=== PATIENT | male | born 1940 | race African-American/Black ===

== ENCOUNTER 2020-09-25 04:48 | Inpatient (IN) | payer MEDICARE ==
[2020-09-25 06:11] LABS: #Eosinphils 0.1 thou/uL (0.0-0.7); #Lymphocytes 1.4 thou/uL (1.20-3.40); #Monocytes 0.6 thou/uL (0.11-0.59); #Neutrophils 4.5 thou/uL (1.40-6.50); %Basophils 0.5 % (0.0-1.0); %Eosinophils 0.9 % (0.0-10.0); %Lymphocytes 21.4 % (21.0-51.0); %Neutrophils 68.2 % (42.0-75.0); Hemoglobin 10.2 g/dL (14.0-18.0); Mean Corpuscular HGB CONC 33.1 g/dL (32.0-36.0); Mean Corpuscular Hemoglobin 28.4 pg (27.0-31.0); Mean Corpuscular Volume 85.8 fL (78.0-98.0); Mean Platelet Volume 8.5 fL (7.4-10.4); Platelet Count 186 thou/uL (130-400); RBC Distribution Width 14.7 % (11.5-14.5); Red Blood Cell (RBC) Count 3.58 mill/uL (4.70-6.10); White Blood Cell (WBC) Count 6.6 thou/uL (4.8-10.8)
[2020-09-25 06:18] LABS: ALT (SGPT) 32 U/L (8-55); AST (SGOT) 103 U/L (5-34); Albumin 2.8 g/dL (3.4-4.8); Alkaline Phosphatase 664 U/L (40-110); Anion Gap 18 mmol/L (10-20); BUN (Urea Nitrogen) 40 mg/dL (8.4-25.7); Bilirubin, Total 2.5 mg/dL (0.2-1.2); Calc. Creatinine Clearance 0 mL/min (70-130); Calcium 7.8 mg/dL (7.8-10.44); Carbon Dioxide 20 mmol/L (23-31); Chloride 100 mmol/L (98-107); Glucose 107 mg/dL (83-110); Protein, Total 5.8 g/dL (5.8-8.1); Sodium 135 mmol/L (136-145)
[2020-09-25 06:22] LABS: Potassium 2.9 mmol/L (3.5-5.1)
[2020-09-25 06:41] LABS: CKMB 5.7 ng/mL (0-6.6)
[2020-09-25] MEDS ORDERED: Senokot S 8.6-50 MG TAB PO PRN (07:38)
[2020-09-25] MEDS ORDERED: Acetaminophen 325 MG TAB PO PRN (07:38)
[2020-09-25] MEDS ORDERED: NS 0.9% w/ 20 MEQ KCL 1,000 ML/1,000 ML BAG IV SCH (07:45)
[2020-09-25] MEDS ORDERED: Sodium Chloride 0.9% 1,000 ML IV SCH (07:45)
[2020-09-25] MEDS ORDERED: NS 0.9% w/ 40 MEQ KCL 1,000 ML IV SCH (07:45)
[2020-09-25 08:39] LABS: INR-International Normal Ratio 1.6; PTT 56.4 sec (22.9-36.1)
[2020-09-25] MEDS ORDERED: hydrALAZINE 20 MG/ML VIAL SLOW IVP PRN (08:39)
[2020-09-25 08:48] LABS: Magnesium 2.2 mg/dL (1.6-2.6); Phosphorus 2.1 mg/dL (2.3-4.7)
--- NOTE | 2020-09-25 08:50 | PDOC.HHP ---
Hospitalist HPI Generalized weakness sp Chemo History of Present Illness: Mr Belle is a 79-year-old male transferred from [facility] to our ED at [facility]. Patient has had weakness for the last 3 days worsened significantly over the last 24 hours. Family reports patient has been sleeping more than normal for the past few days, has not been as active and has been having a more difficult time ambulating. Patient is on chemo therapy last was 3 days ago for metastatic prostate cancer. He sees Dr. Moore and Dr. Marrero in [place]. PCP is Dr. Danny Kee. Patient was initially hypotensive upon arrival to the emergency department in [place]. Initial set of vital signs were 103/58 with a pulse of 97, Pulse ox was 89% with normal RR. Lab work done in [place] revealed: UA with protein, small bili, lg blood, 3-9 red blood cells, 1-2 white blood cells and occasional bacteria. Mag level was normal. CMP with NA 136, K 2.6, BUN 41, CR 2.85. Troponin was 0.15 which is outside the upper limits of normal. Flu and coronavirus swabs were negative. Lactic acid was 2.8. White blood cell count was 6.7. Hemoglobin was 10.6. Platelets were 185. Coags had a INR of 1.9. Chest x-ray shows no acute process. [place] ED gave him 2 L of lactated Ringer's and K replacement 10 meq IV. 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 He will be admitted for RIVERA, generalized weakness, elevated troponin, dehydration, elevated liver enzymes. Current vitals: BP 144/67, P 86. RR 24, PO2 93 RA Allergies/Adverse Reactions: Allergy/AdvReac Type Severity Reaction Status Date / Time No Known Allergies Allergy Verified 04/25/14 23:51 Home Medications: Medication Instructions Recorded Confirmed Type Atorvastatin Calcium [Lipitor] 80 mg PO DAILY 04/25/14 09/25/20 History Lisinopril/Hydrochlorothiazide 1 tablet PO DAILY 04/25/14 09/25/20 History [Lisinopril-Hctz 20-25 mg Tab] Abiraterone Acetate 1 tab PO DAILY 09/25/20 09/25/20 History Apixaban [Eliquis] 1 tab PO DAILY 09/25/20 09/25/20 History HYDROcodone Bit/APAP 5/325 [[place] 1 - 2 tab PO Q6HR PRN 09/25/20 09/25/20 History 5/325] Past History: PMH pertinent for Prostate ca with mets, hyperlipidemia, hypertension, DVT/PE, obesity, OA PSH: right knee replacement; eye surgery; colonscopy with polyp removal Denies smoking history; no alcohol; drug use Hospitalist HPI ROS Constitutional: reports: weakness, malaise Eyes: denies: pain, vision change, conjunctivae inflammation, eyelid inflammation, redness, other ENT: denies: ear pain, ear discharge, nose pain, nose discharge, nose congestion, mouth pain, mouth swelling, throat pain, throat swelling, other Respiratory: denies: cough, dry, shortness of breath, hemoptysis, SOB with excertion, pleuritic pain, sputum, wheezing, other Cardiovascular: denies: chest pain, palpitations, orthopnea, paroxysmal noc. dyspnea, edema, light headedness, other Gastrointestinal: denies: nausea, vomiting, abdominal pain, diarrhea, constipation, melena, hematochezia, other Genitourinary: denies: dysuria, frequency, incontinence, hematuria, retention, other Skin: denies: rash, lesions, karey, bruising, other Neurological: reports: other (He reports his legs feel "weak" bilaterally) Hospitalist Exam Vitals: Vital Signs (12 hours) Temp Pulse Resp BP Pulse Ox 09/25/20 08:00 99.2 F 98 32 H 139/78 97 General Appearance: NAD, awake alert Eye: PERRL ENT: normocephalic atraumatic, dry oral mucosa Neck: supple, no lymphadenopathy Heart: RRR, normal peripheral pulses Respiratory: CTAB, normal chest expansion Gastrointestinal: soft, non-tender Extremities: 2+ LE edema Neurological: no focal deficits Musculoskeletal: normal tone, generalized weakness Psychiatric: normal affect, A&O x 3 Hospitalist Results Result Diagrams: 09/25/20 05:40 09/25/20 05:40 Lab results: Laboratory Last Values WBC 6.6 thou/uL (4.8-10.8) 09/25/20 05:40 RBC 3.58 mill/uL (4.70-6.10) L 09/25/20 05:40 Hgb 10.2 g/dL (14.0-18.0) L 09/25/20 05:40 Hct 30.7 % (42.0-52.0) L 09/25/20 05:40 MCV 85.8 fL (78.0-98.0) 09/25/20 05:40 MCH 28.4 pg (27.0-31.0) 09/25/20 05:40 MCHC 33.1 g/dL (32.0-36.0) 09/25/20 05:40 RDW 14.7 % (11.5-14.5) H 09/25/20 05:40 Plt Count 186 thou/uL (130-400) 09/25/20 05:40 MPV 8.5 fL (7.4-10.4) 09/25/20 05:40 Neutrophils % 68.2 % (42.0-75.0) 09/25/20 05:40 Lymphocytes % 21.4 % (21.0-51.0) 09/25/20 05:40 Monocytes % 9.0 % (0.0-10.0) 09/25/20 05:40 Eosinophils % 0.9 % (0.0-10.0) 09/25/20 05:40 Basophils % 0.5 % (0.0-1.0) 09/25/20 05:40 Neutrophils # 4.5 thou/uL (1.40-6.50) 09/25/20 05:40 Lymphocytes # 1.4 thou/uL (1.20-3.40) 09/25/20 05:40 Monocytes # 0.6 thou/uL (0.11-0.59) H 09/25/20 05:40 Eosinophils # 0.1 thou/uL (0.0-0.7) 09/25/20 05:40 Basophils # 0.0 thou/uL (0.0-0.2) 09/25/20 05:40 Sodium 135 mmol/L (136-145) L 09/25/20 05:40 Potassium 2.9 mmol/L (3.5-5.1) L* 09/25/20 05:40 Chloride 100 mmol/L (98-107) 09/25/20 05:40 Carbon Dioxide 20 mmol/L (23-31) L 09/25/20 05:40 Anion Gap 18 mmol/L (10-20) 09/25/20 05:40 BUN 40 mg/dL (8.4-25.7) H 09/25/20 05:40 Creatinine 2.55 mg/dL (0.7-1.3) H 09/25/20 05:40 Estimated GFR (MDRD) 30 09/25/20 05:40 Glucose 107 mg/dL (83-110) 09/25/20 05:40 Lactic Acid 1.8 mmol/L (0.5-2.2) 09/25/20 05:40 Calcium 7.8 mg/dL (7.8-10.44) 09/25/20 05:40 Total Bilirubin 2.5 mg/dL (0.2-1.2) H 09/25/20 05:40 AST 103 U/L (5-34) H 09/25/20 05:40 ALT 32 U/L (8-55) 09/25/20 05:40 Alkaline Phosphatase 664 U/L (40-110) H 09/25/20 05:40 CK-MB (CK-2) 5.7 ng/mL (0-6.6) 09/25/20 05:48 Troponin I 0.191 ng/mL (< 0.028) H 09/25/20 05:48 Serum Total Protein 5.8 g/dL (5.8-8.1) 09/25/20 05:40 Albumin 2.8 g/dL (3.4-4.8) L 09/25/20 05:40 Globulin 3.0 g/dL (2.4-3.5) 09/25/20 05:40 Albumin/Globulin Ratio 0.9 g/dL (1.2-2.2) L 09/25/20 05:40 Hospitalist H&P A/P (1) RIVERA (acute kidney injury) Code(s): N17.9 - ACUTE KIDNEY FAILURE, UNSPECIFIED Status: Acute (2) Prostate cancer Code(s): C61 - MALIGNANT NEOPLASM OF PROSTATE Status: Chronic (3) Generalized muscle weakness Code(s): M62.81 - MUSCLE WEAKNESS (GENERALIZED) Status: Acute (4) Hyperlipidemia with target LDL less than 100 Code(s): E78.5 - HYPERLIPIDEMIA, UNSPECIFIED Status: Chronic (5) Hypertension Code(s): I10 - ESSENTIAL (PRIMARY) HYPERTENSION Status: Chronic (6) Hypokalemia Code(s): E87.6 - HYPOKALEMIA Status: Acute (7) Elevated liver enzymes Code(s): R74.8 - ABNORMAL LEVELS OF OTHER SERUM ENZYMES Status: Acute (8) History of DVT (deep vein thrombosis) Code(s): Z86.718 - PERSONAL HISTORY OF OTHER VENOUS THROMBOSIS AND EMBOLISM Status: Chronic (9) Elevated troponin Code(s): R77.8 - OTHER SPECIFIED ABNORMALITIES OF PLASMA PROTEINS Status: Acute Plan: #RIVERA NS w/ 29 meq IV @100mls/hr Will recheck BMP at 1400 Hold his lisinopril/HCTZ HTN meds for now OT/PT evaluation #Hypokalemia See above recheck mag/phos #elevated troponin Will trend lab values Add Echo # Elevated liver enzymes/hyperlipidema Hold his statin for now Recheck his levels in AM Caution with tylenol products # History of DVT Will continue Eliquis #Hypertension Hold his home HTN for now Add PRN anti-hypertensive #Prostate CA with mets Last Chemo was 3 days ago; patient's states next appt with Dr. Moore is 10/06/20. Last labs indicated his PSA was going up so they may adjust his chemo. Heart healthy diet; pepcid 20mg po bid for PUD prevention Patient is a full code; Patient's daughter is James - [phone] (his can be reached at this number as well). Discussed case with Dr. Paredes Brief admit note: 79-year-old male with prostate cancer followed by Dr. Moore presented to an outside emergency room with generalized weakness with poor appetite. His work- up was consistent with acute renal failure with creatinine of 2.85 with potassium 2.6 and lactic acid of 2.8. At this time patient denies any new complaints. He has been started on IV hydration. He he is somewhat somnolent, however, he is able to answer appropriately most of the time. His past medical history, past surgical history, current medications, social history were reviewed. He denies any heart disease in his family. Review of systemlimited due to current mentation. No recent fall or injuries reported. His vital signs were reviewed. On examinationpatient in no apparent distress, somnolent. Appears ill. S1-S2 heard. Abdomen was soft with normal bowel sounds. Lungs showed diminished air entry at bases. No significant calf tenderness reported. There was no focal deficit identified. Lab findings were reviewed. EKG showed sinus rhythm. I agree with the note by the nurse practitioner including the assessment and plan. 09/25/20 05:40 09/25/20 05:40 Abnormal Lab Results - Last 48 hrs 09/25/20 05:40: RBC 3.58 L, Hgb 10.2 L, Hct 30.7 L, RDW 14.7 H, Monocytes # 0.6 H 09/25/20 05:40: Sodium 135 L, Potassium 2.9 L*, Carbon Dioxide 20 L, BUN 40 H, Creatinine 2.55 H, Total Bilirubin 2.5 H, AST 103 H, Alkaline Phosphatase 664 H, Albumin 2.8 L, Albumin/Globulin Ratio 0.9 L 09/25/20 05:48: Troponin I 0.191 H 09/25/20 08:17: PT 19.0 H, APTT 56.4 H 09/25/20 08:17: Troponin I 0.196 H 09/25/20 08:17: Phosphorus 2.1 L Impression: Generalized weakness/RIVERA on CKD stage IIprobably hemodynamically mediated Electrolyte abnormality including hypokalemia, hyponatremia and hypophosphatemia Abnormal LFTsmost likely chronic Elevated troponindue to demand ischemia Chronic anemia suspected due to underlying malignancy/chemotherapy 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 Moore with recent chemotherapy Plan: We will continue IV hydration. Replace electrolytes. His neurological examination is nonfocal. Will check echocardiogram. Renal ultrasound will be obtained. Will recheck electrolytes later today. A.m. labs ordered. Physical therapy occupational therapy consultation. Patient may benefit from oncology/palliative care consultation. Family was updated by nurse practitioner. Fall precautions. Patient understands above plan of care
[2020-09-25] MEDS ORDERED: Potassium Phosphate 15 MMOL in Sodium Chloride 0.9% 250 ML 250 ML IVPB SCH (09:15)
[2020-09-25] MEDS ORDERED: Potassium Chloride 20 MEQ TAB ONE (09:44)
[2020-09-25] MEDS ORDERED: Famotidine 20 MG TAB ONE (09:44)
[2020-09-25] MEDS: Potassium Chloride 20 MEQ TAB PO SCH (09:48)
[2020-09-25] MEDS: Famotidine 20 MG TAB PO SCH ×2 (09:48→19:46)
[2020-09-25] MEDS: Apixaban 5 MG TAB PO SCH ×2 (09:48→19:46)
[2020-09-25] MEDS: NS 0.9% w/ 20 MEQ KCL 1,000 ML/1,000 ML BAG IV SCH ×2 (13:18→17:17)
[2020-09-25 13:57] VITALS: BMI 38.7
[2020-09-25 18:02] LABS: Anion Gap 17 mmol/L (10-20); BUN (Urea Nitrogen) 38 mg/dL (8.4-25.7); Calc. Creatinine Clearance 48 mL/min (70-130); Calcium 7.7 mg/dL (7.8-10.44); Carbon Dioxide 20 mmol/L (23-31); Chloride 102 mmol/L (98-107); Glucose 91 mg/dL (83-110); Potassium 3.4 mmol/L (3.5-5.1); Sodium 136 mmol/L (136-145)
--- NOTE | 2020-09-25 18:09 | ULT ---
Exam: Bilateral renal ultrasound HISTORY: Acute kidney insufficiency COMPARISON: None FINDINGS: Right kidney: Normal cortical echotexture. No hydronephrosis. Right kidney measurements: 9.3 x 5.3 x 4.5 cm. Left kidney: Normal cortical echotexture. No hydronephrosis Left kidney measurements 6 5.0 x 5.1 x 10.5 cm. Urinary bladder: Normal mucosa. Prevoid volume is 235 mL IMPRESSION: No hydronephrosis.
[2020-09-25 23:05] LABS: SARS-CoV-2 PCR by NAA Not Detected (NotDetected)
[2020-09-26] MEDS: Acetaminophen 325 MG TAB PO PRN (00:31)
--- NOTE | 2020-09-26 01:24 | CON ---
DATE OF CONSULTATION: 09/25/2020 REASON FOR ADMISSION: Metastatic prostate cancer with weakness and hypotension. HISTORY OF PRESENT ILLNESS: The patient is a 79-year-old man with known metastatic prostate carcinoma, admitted in transfer from [place] with hypotension and hypoxemia associated with acute renal insufficiency. The diagnosis of prostate cancer was made in 2016, at which time the PSA was 33 and he had a Greta score 4+5 in 11 of 2012 cores. There was evidence of regional adenopathy. It is unclear exactly how he was treated, but it does seem that he was treated with Lupron every three months without local therapy, but progressed in 2018 with metastatic disease involved and a rising PSA. He was then started on Xtandi, and after about a year of therapy, was seen in our office in the summer of 2019. At that time, the PSA seemed to be rising again after falling to less than 1, and he was being considered for a change in therapy. He was thought to be a poor candidate for chemotherapy and was switched to oral Zytiga; however, he was lost to followup and only received Zometa in the office, the last treatment being in June 2020. He presented to the ER in [place] with a 3-day history of progressive weakness and was found to be hypotensive with a pulse oximeter reading of 89%. Laboratory studies were significant for a normal white count, hemoglobin of 10.6. Coagulation studies were normal. The creatinine was 2.85 and BUN 41. The last creatinine in our office was 1.5. A CXR reportedly showed no acute findings. He was treated with fluids and transferred to this hospital for further evaluation. I am asked to see the patient and provide further management recommendations regarding the metastatic prostate carcinoma. ALLERGIES: NONE. MEDICATIONS: 1. Prednisone. 2. Zytiga. 3. Atorvastatin. 4. Eliquis. 5. Hydrochlorothiazide. 6. Lisinopril. PAST MEDICAL HISTORY: No medical illness. There is a history of hypertension and hyperlipidemia. He apparently suffered a deep venous thrombosis in the past, but details are unclear. SURGERIES: He has had knee replacement in the past secondary to osteoarthritis. SOCIAL HISTORY: He is with two children. He lives with his . He does not smoke or drink alcohol. He is a retired city worker. FAMILY HISTORY: Significant for his mother having a history of stomach cancer. REVIEW OF SYSTEMS: Except as mentioned in history of present illness, he denies other significant cardiopulmonary, GI, , musculoskeletal, or neurological complaints. PHYSICAL EXAMINATION: VITAL SIGNS: Temperature 98.7, pulse 95 and regular, respirations 18, O2 saturation 96% on 2 L, blood pressure 112/54. GENERAL: The patient is a well-developed and well-nourished but obese man in no acute distress. He is a bit lethargic in his response to questioning, but oriented. HEENT: The extraocular movements are intact. The pupils are equal, round, reactive to light. NECK: Supple. LUNGS: Clear. CARDIOVASCULAR: Regular rate and rhythm without murmur, gallop, or click. ABDOMEN: No tenderness, organomegaly, masses, bruits, or ascites. EXTREMITIES: No clubbing, cyanosis, edema. SKIN: Normal lymph. No adenopathy. MUSCULOSKELETAL: No active arthritis. NEUROLOGICAL: No focal findings and the cranial nerves 2-12 are grossly intact. LABORATORY DATA: White blood cell count 6.6, hemoglobin 10.2, and platelet count 186,000. Chemistries show a sodium 135, potassium 2.9, chloride 100, carbon dioxide 20. The creatinine is 2.55 and BUN 40. The total bilirubin is 2.5, AST 103, ALT 32, and alkaline phosphatase 664. The albumin is 2.8. IMAGING: A renal ultrasound showed no evidence of hydronephrosis. IMPRESSION: 1. Androgen independent metastatic carcinoma of the prostate. 2. Hypotension, volume depletion, and acute renal insufficiency without evidence of obstruction. 3. Abnormal liver function studies. RECOMMENDATIONS: The patient will continue intravenous fluids and electrolytes/renal function will be monitored. Empiric antibiotics have been initiated. Case will be discussed with my colleague, Dr. Moore, and further management will be recommended when he is medically stable. Thanks very much for allowing me to provide recommendations. Devin Bhat MD Job ID: [id number] MTDD
[2020-09-26] MEDS: NS 0.9% w/ 20 MEQ KCL 1,000 ML/1,000 ML BAG IV SCH ×3 (01:43→18:09)
[2020-09-26 06:58] LABS: #Basophils 0.1 thou/uL (0.0-0.2); #Eosinphils 0.1 thou/uL (0.0-0.7); #Lymphocytes 1.4 thou/uL (1.20-3.40); #Monocytes 0.5 thou/uL (0.11-0.59); #Neutrophils 4.2 thou/uL (1.40-6.50); %Eosinophils 1.6 % (0.0-10.0); %Lymphocytes 22.2 % (21.0-51.0); %Monocytes 8.3 % (0.0-10.0); %Neutrophils 66.9 % (42.0-75.0); Hemoglobin 9.7 g/dL (14.0-18.0); Mean Corpuscular HGB CONC 32.7 g/dL (32.0-36.0); Mean Corpuscular Hemoglobin 28.3 pg (27.0-31.0); Mean Corpuscular Volume 86.7 fL (78.0-98.0); Mean Platelet Volume 8.4 fL (7.4-10.4); Platelet Count 168 thou/uL (130-400); Red Blood Cell (RBC) Count 3.43 mill/uL (4.70-6.10); White Blood Cell (WBC) Count 6.3 thou/uL (4.8-10.8)
[2020-09-26 07:22] LABS: Phosphorus 2.5 mg/dL (2.3-4.7)
[2020-09-26 07:24] LABS: ALT (SGPT) 32 U/L (8-55); AST (SGOT) 111 U/L (5-34); Albumin 2.7 g/dL (3.4-4.8); Alkaline Phosphatase 574 U/L (40-110); Anion Gap 18 mmol/L (10-20); BUN (Urea Nitrogen) 35 mg/dL (8.4-25.7); Bilirubin, Total 2.5 mg/dL (0.2-1.2); Calc. Creatinine Clearance 50 mL/min (70-130); Calcium 7.5 mg/dL (7.8-10.44); Carbon Dioxide 17 mmol/L (23-31); Chloride 106 mmol/L (98-107); Globulin 2.9 g/dL (2.4-3.5); Glucose 78 mg/dL (83-110); Magnesium 2.3 mg/dL (1.6-2.6); Potassium 3.6 mmol/L (3.5-5.1); Protein, Total 5.6 g/dL (5.8-8.1); Sodium 137 mmol/L (136-145)
[2020-09-26] MEDS ORDERED: GUAIFENESIN SF SOLN 200 MG/10 ML UDCUP PO PRN (07:25)
[2020-09-26] MEDS ORDERED: Cepastat Lozenges 1 LOZ PO PRN (07:25)
[2020-09-26] MEDS ORDERED: Ondansetron PF 4 MG/2 ML Vial IVP PRN (07:25)
[2020-09-26] MEDS ORDERED: Ondansetron ODT 4 MG TAB PO PRN (07:25)
[2020-09-26] MEDS ORDERED: Loratadine 10 MG TAB PO PRN (07:25)
[2020-09-26] MEDS ORDERED: Calcium Carbonate 500 MG ChewTAB PO PRN (07:25)
[2020-09-26] MEDS ORDERED: Sodium Chloride 0.65% Nasal 44 ML BOT EA NARE PRN (07:25)
[2020-09-26] MEDS: Apixaban 5 MG TAB PO SCH ×2 (08:57→20:02)
[2020-09-26] MEDS: Potassium Chloride 20 MEQ TAB PO SCH (08:57)
--- NOTE | 2020-09-26 10:35 | PDOC.HOSPP ---
- Subjective Encounter Date: 09/26/20 Encounter Time: 07:00 Subjective: Patient is on room air, he is not mentioning any complaint, he is physically very weak, - Objective Vital Signs & Weight: Vital Signs (12 hours) Temp Pulse Resp BP Pulse Ox 09/26/20 08:00 97.8 F 90 20 116/57 L 96 09/26/20 04:00 98.2 F 92 16 127/56 L 96 09/26/20 01:01 98.3 F 09/25/20 23:49 99.6 F 105 H 16 124/55 L 92 L Weight Weight 277 lb 12.8 oz I&O: 09/25/20 09/26/20 09/27/20 06:59 06:59 06:59 Intake Total 2250 Balance 2250 Result Diagrams: 09/26/20 06:09 09/26/20 06:09 Additional Labs: Accuchecks 09/25/20 18:49 POC Glucose 72 Hospitalist ROS - Review of Systems Constitutional: reports: weakness, malaise. denies: fever, chills, sweats, other Respiratory: denies: cough, dry, shortness of breath, hemoptysis, SOB with excertion, pleuritic pain, sputum, wheezing, other Cardiovascular: denies: chest pain, palpitations, orthopnea, paroxysmal noc. dyspnea, edema, light headedness, other Gastrointestinal: denies: nausea, vomiting, abdominal pain, diarrhea, constipation, melena, hematochezia, other Genitourinary: denies: dysuria, frequency, incontinence, hematuria, retention, other Musculoskeletal: denies: neck pain, shoulder pain, arm pain, back pain, hand pain, leg pain, foot pain, other - Medication Medications: Active Medications Generic Name Dose Route Start Last Admin Trade Name Freq PRN Reason Stop Dose Admin Acetaminophen 650 mg 09/26/20 00:13 09/26/20 00:31 Acetaminophen 325 Mg Tab PO 650 mg Q4H PRN Administration Headache/Fever/Mild Pain (1-3) Apixaban 5 mg 09/25/20 09:00 09/26/20 08:57 Apixaban 5 Mg Tab PO 5 mg BID BOBBI Administration Potassium Chloride/Sodium Chloride 1,000 ml in 1,000 mls @ 125 mls/hr 09/25/20 09:45 09/26/20 09:34 Ns 0.9% W/ 20 Meq Kcl IV 1,000 mls .Q8H BOBBI Administration Pantoprazole Sodium 40 mg 09/26/20 09:00 09/26/20 08:57 Pantoprazole 40 Mg Tab PO 40 mg DAILY BOBBI Administration Potassium Chloride 40 meq 09/25/20 08:00 09/26/20 08:57 Potassium Chloride 20 Meq Tab PO 40 meq QAM-WM BOBBI Administration Hospitalist Exam Vitals: Vital Signs (12 hours) Temp Pulse Resp BP Pulse Ox 09/26/20 08:00 97.8 F 90 20 116/57 L 96 09/26/20 04:00 98.2 F 92 16 127/56 L 96 09/26/20 01:01 98.3 F 09/25/20 23:49 99.6 F 105 H 16 124/55 L 92 L Weight Weight 277 lb 12.8 oz General Appearance: NAD, awake alert Eye: PERRL, anicteric sclera ENT: normocephalic atraumatic, no oropharyngeal lesions Neck: supple, symmetric, no JVD, no thyromegaly Heart: RRR, no murmur, no gallops, no rubs Respiratory: no wheezes, no rales, no ronchi Gastrointestinal: soft, non-tender, non-distended, normal bowel sounds Gastrointestinal - other findings: Obesity Extremities: no clubbing, no edema Skin: normal turgor, no lesions Neurological: no focal deficits Musculoskeletal: generalized weakness Psychiatric: normal affect, normal behavior Hosp A/P (1) RIVERA (acute kidney injury) Code(s): N17.9 - ACUTE KIDNEY FAILURE, UNSPECIFIED Status: Acute (2) Obesity (BMI 30-39.9) Code(s): E66.9 - OBESITY, UNSPECIFIED Status: Chronic (3) Prostate cancer metastatic to multiple sites Code(s): C61 - MALIGNANT NEOPLASM OF PROSTATE Status: Chronic (4) Generalized muscle weakness Code(s): M62.81 - MUSCLE WEAKNESS (GENERALIZED) Status: Chronic (5) History of DVT (deep vein thrombosis) Code(s): Z86.718 - PERSONAL HISTORY OF OTHER VENOUS THROMBOSIS AND EMBOLISM Status: Chronic (6) Hypertension Code(s): I10 - ESSENTIAL (PRIMARY) HYPERTENSION Status: Chronic (7) Hypophosphatemia Code(s): E83.39 - OTHER DISORDERS OF PHOSPHORUS METABOLISM Status: Acute (8) Elevated liver enzymes Code(s): R74.8 - ABNORMAL LEVELS OF OTHER SERUM ENZYMES Status: Acute (9) Elevated troponin Code(s): R77.8 - OTHER SPECIFIED ABNORMALITIES OF PLASMA PROTEINS Status: Acute (10) Hypokalemia Code(s): E87.6 - HYPOKALEMIA Status: Acute - Plan old records reviewed/req, PT/OT, social science research assistant Renal function has not improved, will continue IV fluid today Continue PT OT We will need pillowcase maker for discharge planning Oncology recommendation appreciated Tomorrow we will repeat labs Continue Eliquis Echocardiography pending
[2020-09-26] MEDS: Loperamide HCl 2 MG CAP PO PRN (20:02)
[2020-09-27] MEDS: NS 0.9% w/ 20 MEQ KCL 1,000 ML/1,000 ML BAG IV SCH ×3 (01:45→20:21)
[2020-09-27] MEDS: Loperamide HCl 2 MG CAP PO PRN (05:54)
[2020-09-27 06:51] LABS: #Eosinphils 0.1 thou/uL (0.0-0.7); #Lymphocytes 1.1 thou/uL (1.20-3.40); #Monocytes 0.4 thou/uL (0.11-0.59); #Neutrophils 2.5 thou/uL (1.40-6.50); %Basophils 0.6 % (0.0-1.0); %Eosinophils 1.7 % (0.0-10.0); %Lymphocytes 26.7 % (21.0-51.0); %Monocytes 9.4 % (0.0-10.0); %Neutrophils 61.6 % (42.0-75.0); Hemoglobin 10.8 g/dL (14.0-18.0); Mean Corpuscular Hemoglobin 29.1 pg (27.0-31.0); Mean Corpuscular Volume 88.5 fL (78.0-98.0); Mean Platelet Volume 8.1 fL (7.4-10.4); Platelet Count 157 thou/uL (130-400); RBC Distribution Width 14.9 % (11.5-14.5); White Blood Cell (WBC) Count 4.1 thou/uL (4.8-10.8)
[2020-09-27 06:53] LABS: ALT (SGPT) 32 U/L (8-55); AST (SGOT) 106 U/L (5-34); Albumin 2.7 g/dL (3.4-4.8); Alkaline Phosphatase 557 U/L (40-110); Anion Gap 16 mmol/L (10-20); BUN (Urea Nitrogen) 34 mg/dL (8.4-25.7); Calc. Creatinine Clearance 52 mL/min (70-130); Calcium 7.7 mg/dL (7.8-10.44); Carbon Dioxide 17 mmol/L (23-31); Chloride 112 mmol/L (98-107); Globulin 3.2 g/dL (2.4-3.5); Glucose 96 mg/dL (83-110); Potassium 3.7 mmol/L (3.5-5.1); Protein, Total 5.9 g/dL (5.8-8.1); Sodium 141 mmol/L (136-145)
[2020-09-27] MEDS: Apixaban 5 MG TAB PO SCH ×2 (09:51→20:21)
[2020-09-27] MEDS: Acetaminophen 325 MG TAB PO PRN (09:51)
[2020-09-27] MEDS: Potassium Chloride 20 MEQ TAB PO SCH (09:51)
--- NOTE | 2020-09-27 12:15 | PDOC.HOSPP ---
- Subjective Encounter Date: 09/27/20 Encounter Time: 07:10 Subjective: Patient seen and examined. No new complaints. No overnight events - Objective Vital Signs & Weight: Vital Signs (12 hours) Temp Pulse Resp BP Pulse Ox 09/27/20 08:00 97.9 F 89 16 139/75 92 L Weight Weight 277 lb 12.8 oz I&O: 09/26/20 09/27/20 09/28/20 06:59 06:59 06:59 Intake Total 2250 3790 Balance 2250 3790 Result Diagrams: 09/27/20 06:23 09/27/20 06:23 Additional Labs: Accuchecks 09/27/20 09/27/20 09/27/20 12:02 05:53 00:54 POC Glucose 95 92 105 H 09/26/20 09/26/20 09/26/20 18:31 14:08 05:44 POC Glucose 97 113 H 76 09/25/20 23:52 POC Glucose 103 H Hospitalist ROS - Review of Systems ENT: denies: ear pain, ear discharge, nose pain, nose discharge, nose congestion, mouth pain, mouth swelling, throat pain, throat swelling, other Respiratory: denies: cough, dry, shortness of breath, hemoptysis, SOB with excertion, pleuritic pain, sputum, wheezing, other Cardiovascular: denies: chest pain, palpitations, orthopnea, paroxysmal noc. dyspnea, edema, light headedness, other Gastrointestinal: denies: nausea, vomiting, abdominal pain, diarrhea, constipation, melena, hematochezia, other Genitourinary: denies: dysuria, frequency, incontinence, hematuria, retention, other - Medication Medications: Active Medications Generic Name Dose Route Start Last Admin Trade Name Freq PRN Reason Stop Dose Admin Acetaminophen 650 mg 09/26/20 00:13 09/27/20 09:51 Acetaminophen 325 Mg Tab PO 650 mg Q4H PRN Administration Headache/Fever/Mild Pain (1-3) Apixaban 5 mg 09/25/20 09:00 09/27/20 09:51 Apixaban 5 Mg Tab PO 5 mg BID BOBBI Administration Potassium Chloride/Sodium Chloride 1,000 ml in 1,000 mls @ 125 mls/hr 09/25/20 09:45 09/27/20 09:59 Ns 0.9% W/ 20 Meq Kcl IV 1,000 mls .Q8H BOBBI Administration Loperamide HCl 2 mg 09/26/20 07:25 09/27/20 05:54 Loperamide Hcl 2 Mg Cap PO 2 mg PRN PRN Administration Diarrhea/Loose Stools Pantoprazole Sodium 40 mg 09/26/20 09:00 09/27/20 09:51 Pantoprazole 40 Mg Tab PO 40 mg DAILY BOBBI Administration Potassium Chloride 40 meq 09/25/20 08:00 09/27/20 09:51 Potassium Chloride 20 Meq Tab PO 40 meq QAM-WM BOBBI Administration Hospitalist Exam Vitals: Vital Signs (12 hours) Temp Pulse Resp BP Pulse Ox 09/27/20 08:00 97.9 F 89 16 139/75 92 L Weight Weight 277 lb 12.8 oz General Appearance: NAD, awake alert Eye: PERRL, anicteric sclera ENT: normocephalic atraumatic, no oropharyngeal lesions Neck: supple, symmetric, no JVD, no thyromegaly Heart: RRR, no murmur, no gallops, no rubs Respiratory: no wheezes, no rales, no ronchi Gastrointestinal: soft, non-tender, non-distended, normal bowel sounds Gastrointestinal - other findings: Obesity noted Extremities: no clubbing, no edema Skin: normal turgor, no lesions Neurological: no focal deficits Musculoskeletal: normal tone, normal strength Psychiatric: normal affect, normal behavior Hosp A/P (1) RIVERA (acute kidney injury) Code(s): N17.9 - ACUTE KIDNEY FAILURE, UNSPECIFIED Status: Acute (2) Obesity (BMI 30-39.9) Code(s): E66.9 - OBESITY, UNSPECIFIED Status: Chronic (3) Prostate cancer metastatic to multiple sites Code(s): C61 - MALIGNANT NEOPLASM OF PROSTATE Status: Chronic (4) Generalized muscle weakness Code(s): M62.81 - MUSCLE WEAKNESS (GENERALIZED) Status: Chronic (5) History of DVT (deep vein thrombosis) Code(s): Z86.718 - PERSONAL HISTORY OF OTHER VENOUS THROMBOSIS AND EMBOLISM Status: Chronic (6) Hypertension Code(s): I10 - ESSENTIAL (PRIMARY) HYPERTENSION Status: Chronic (7) Hypophosphatemia Code(s): E83.39 - OTHER DISORDERS OF PHOSPHORUS METABOLISM Status: Acute (8) Elevated liver enzymes Code(s): R74.8 - ABNORMAL LEVELS OF OTHER SERUM ENZYMES Status: Acute (9) Elevated troponin Code(s): R77.8 - OTHER SPECIFIED ABNORMALITIES OF PLASMA PROTEINS Status: Acute (10) Hypokalemia Code(s): E87.6 - HYPOKALEMIA Status: Acute - Plan Renal function has not improved, will continue IV fluid today Continue PT OT We will need case therapist for discharge planning Oncology recommendation appreciated Tomorrow we will repeat labs Continue Eliquis Echocardiography pending
--- NOTE | 2020-09-27 13:58 | PDOC.MOPN ---
Interval History: denies pain, wants to go home. - Vital Signs Vital Signs: Vital Signs (12 hours) Temp Pulse Resp BP Pulse Ox 09/27/20 08:00 97.9 F 89 16 139/75 92 L Weight Weight 277 lb 12.8 oz - Physical Exam General: Alert Lungs: Clear to auscultation Cardiovascular: Regular rate Abdomen: Normal bowel sounds Neurological: Normal speech - Labs Result Diagrams: 09/27/20 06:23 09/27/20 06:23 Lab results: Laboratory Results - last 24 hr 09/27/20 12:02: POC Glucose 95 09/27/20 06:23: Prostate Specific Ag 167.25 H 09/27/20 06:23: WBC 4.1 L, RBC 3.70 L, Hgb 10.8 L, Hct 32.8 L, MCV 88.5, MCH 29.1, MCHC 33.0, RDW 14.9 H, Plt Count 157, MPV 8.1, Neutrophils % 61.6, Lymphocytes % 26.7, Monocytes % 9.4, Eosinophils % 1.7, Basophils % 0.6, Neutrophils # 2.5, Lymphocytes # 1.1 L, Monocytes # 0.4, Eosinophils # 0.1, Basophils # 0.0 09/27/20 06:23: Sodium 141, Potassium 3.7, Chloride 112 H, Carbon Dioxide 17 L, Anion Gap 16, BUN 34 H, Creatinine 2.10 H, Estimated GFR (MDRD) 37, Glucose 96, Calcium 7.7 L, Total Bilirubin 2.0 H, AST 106 H, ALT 32, Alkaline Phosphatase 557 H, Serum Total Protein 5.9, Albumin 2.7 L, Globulin 3.2, Albumin/Globulin Ratio 0.8 L 09/27/20 05:53: POC Glucose 92 09/27/20 00:54: POC Glucose 105 H 09/26/20 18:31: POC Glucose 97 09/26/20 14:08: POC Glucose 113 H 09/26/20 05:44: POC Glucose 76 09/25/20 23:52: POC Glucose 103 H Status: lab reviewed by me A/P - Problem (1) RIVERA (acute kidney injury) Current Visit: Yes Code(s): N17.9 - ACUTE KIDNEY FAILURE, UNSPECIFIED Status: Acute (2) Elevated liver enzymes Current Visit: Yes Code(s): R74.8 - ABNORMAL LEVELS OF OTHER SERUM ENZYMES Status: Acute (3) Prostate cancer metastatic to multiple sites Current Visit: Yes Code(s): C61 - MALIGNANT NEOPLASM OF PROSTATE Status: Chronic - Plan Plan: 1. Patient was taking zytiga at home. 2. PSA increased since last fall and is now 167. 3. Zometa given 09/21/20 4. discussed with , they will follow-up in clinic to discuss treatment options.
[2020-09-28] MEDS: NS 0.9% w/ 20 MEQ KCL 1,000 ML/1,000 ML BAG IV SCH (03:59)
[2020-09-28 08:42] LABS: #Basophils 0.1 thou/uL (0.0-0.2); #Eosinphils 0.1 thou/uL (0.0-0.7); #Lymphocytes 1.3 thou/uL (1.20-3.40); #Monocytes 0.5 thou/uL (0.11-0.59); #Neutrophils 2.8 thou/uL (1.40-6.50); %Basophils 1.1 % (0.0-1.0); %Eosinophils 2.2 % (0.0-10.0); %Lymphocytes 26.9 % (21.0-51.0); %Monocytes 10.8 % (0.0-10.0); %Neutrophils 59.1 % (42.0-75.0); Hemoglobin 10.4 g/dL (14.0-18.0); Mean Corpuscular HGB CONC 32.1 g/dL (32.0-36.0); Mean Corpuscular Hemoglobin 28.5 pg (27.0-31.0); Mean Corpuscular Volume 88.8 fL (78.0-98.0); Mean Platelet Volume 8.2 fL (7.4-10.4); Platelet Count 151 thou/uL (130-400); RBC Distribution Width 15.2 % (11.5-14.5); Red Blood Cell (RBC) Count 3.66 mill/uL (4.70-6.10); White Blood Cell (WBC) Count 4.8 thou/uL (4.8-10.8)
[2020-09-28 09:06] LABS: Anion Gap 14 mmol/L (10-20); BUN (Urea Nitrogen) 23 mg/dL (8.4-25.7); Calc. Creatinine Clearance 66 mL/min (70-130); Calcium 7.9 mg/dL (7.8-10.44); Carbon Dioxide 17 mmol/L (23-31); Chloride 115 mmol/L (98-107); Glucose 83 mg/dL (83-110); Potassium 4.4 mmol/L (3.5-5.1); Sodium 142 mmol/L (136-145)
[2020-09-28 09:09] VITALS: BP 134/62; TEMP 98
--- NOTE | 2020-09-28 10:13 | PDOC.HOSPP ---
- Subjective Encounter Date: 09/28/20 Encounter Time: 07:10 Subjective: Patient seen and examined. No new complaints. No overnight events - Objective Vital Signs & Weight: Vital Signs (12 hours) Temp Pulse Resp BP Pulse Ox 09/28/20 08:00 98.0 F 101 H 40 H 134/62 95 Weight Admit Weight 277 lb 12.8 oz Weight 277 lb 12.8 oz I&O: 09/27/20 09/28/20 09/29/20 06:59 06:59 06:59 Intake Total 3790 3200 Balance 3790 3200 Result Diagrams: 09/28/20 08:31 09/28/20 08:31 Additional Labs: Accuchecks 09/27/20 09/27/20 17:51 12:02 POC Glucose 106 H 95 Hospitalist ROS - Review of Systems ENT: denies: ear pain, ear discharge, nose pain, nose discharge, nose congestion, mouth pain, mouth swelling, throat pain, throat swelling, other Respiratory: denies: cough, dry, shortness of breath, hemoptysis, SOB with excertion, pleuritic pain, sputum, wheezing, other Cardiovascular: denies: chest pain, palpitations, orthopnea, paroxysmal noc. dyspnea, edema, light headedness, other Gastrointestinal: denies: nausea, vomiting, abdominal pain, diarrhea, constipation, melena, hematochezia, other Genitourinary: denies: dysuria, frequency, incontinence, hematuria, retention, other Musculoskeletal: denies: neck pain, shoulder pain, arm pain, back pain, hand pain, leg pain, foot pain, other - Medication Medications: Active Medications Generic Name Dose Route Start Last Admin Trade Name Freq PRN Reason Stop Dose Admin Acetaminophen 650 mg 09/26/20 00:13 09/27/20 09:51 Acetaminophen 325 Mg Tab PO 650 mg Q4H PRN Administration Headache/Fever/Mild Pain (1-3) Apixaban 5 mg 09/25/20 09:00 09/27/20 20:21 Apixaban 5 Mg Tab PO 5 mg BID BOBBI Administration Loperamide HCl 2 mg 09/26/20 07:25 09/27/20 05:54 Loperamide Hcl 2 Mg Cap PO 2 mg PRN PRN Administration Diarrhea/Loose Stools Pantoprazole Sodium 40 mg 09/26/20 09:00 09/27/20 09:51 Pantoprazole 40 Mg Tab PO 40 mg DAILY BOBBI Administration Potassium Chloride 40 meq 09/25/20 08:00 09/27/20 09:51 Potassium Chloride 20 Meq Tab PO 40 meq QAM- BOBBI Administration Hospitalist Exam Vitals: Vital Signs (12 hours) Temp Pulse Resp BP Pulse Ox 09/28/20 08:00 98.0 F 101 H 40 H 134/62 95 Weight Admit Weight 277 lb 12.8 oz Weight 277 lb 12.8 oz General Appearance: NAD, awake alert Eye: PERRL, anicteric sclera ENT: normocephalic atraumatic, no oropharyngeal lesions Neck: supple, symmetric, no JVD, no thyromegaly Heart: RRR, no murmur, no gallops, no rubs Respiratory: no wheezes, no rales, no ronchi Gastrointestinal: soft, non-tender, non-distended, normal bowel sounds Extremities: no clubbing, no edema Skin: normal turgor, no lesions Neurological: no focal deficits Musculoskeletal: generalized weakness Psychiatric: normal affect, normal behavior Hosp A/P (1) RIVERA (acute kidney injury) Code(s): N17.9 - ACUTE KIDNEY FAILURE, UNSPECIFIED Status: Acute (2) Obesity (BMI 30-39.9) Code(s): E66.9 - OBESITY, UNSPECIFIED Status: Chronic (3) Prostate cancer metastatic to multiple sites Code(s): C61 - MALIGNANT NEOPLASM OF PROSTATE Status: Chronic (4) Generalized muscle weakness Code(s): M62.81 - MUSCLE WEAKNESS (GENERALIZED) Status: Chronic (5) History of DVT (deep vein thrombosis) Code(s): Z86.718 - PERSONAL HISTORY OF OTHER VENOUS THROMBOSIS AND EMBOLISM Status: Chronic (6) Hypertension Code(s): I10 - ESSENTIAL (PRIMARY) HYPERTENSION Status: Chronic (7) Hypophosphatemia Code(s): E83.39 - OTHER DISORDERS OF PHOSPHORUS METABOLISM Status: Acute (8) Elevated liver enzymes Code(s): R74.8 - ABNORMAL LEVELS OF OTHER SERUM ENZYMES Status: Acute (9) Elevated troponin Code(s): R77.8 - OTHER SPECIFIED ABNORMALITIES OF PLASMA PROTEINS Status: Acute (10) Hypokalemia Code(s): E87.6 - HYPOKALEMIA Status: Acute - Plan old records reviewed/req, PT/OT, [employer] teacher Renal function significantly improved, Discontinue IV fluid Continue PT OT Patient will benefit from long-term home placement given his physical deconditioning Try to reach out patient's family member on phone but unable to leave any voicemail because voicemail is full Medication reviewed and continued per symptomatic and supportive care
[2020-09-28] MEDS: Potassium Chloride 20 MEQ TAB PO SCH (10:23)
[2020-09-28] MEDS: Apixaban 5 MG TAB PO SCH (10:23)
--- NOTE | 2020-09-28 12:48 | PDOC.DS.DS ---
Provider Date of Admission: 09/25/20 05:50 Date of Discharge: 09/28/20 Admitting Provider: Jf Paredes MD Consultations: Oncology Primary Care Physician: Unknown Course Hospital Course: Mr Belle is a 79-year-old male transferred from [facility] to our ED at [facility]. Patient has had weakness for the last 3 days worsened significantly over the last 24 hours. Family reports patient has been sleeping more than normal for the past few days, has not been as active and has been having a more difficult time ambulating. Patient is on chemo therapy last was 3 days ago for metastatic prostate cancer. He sees Dr. Moore and Dr. Mrarero in [place]. PCP is Dr. Danny Kee. Patient was initially hypotensive upon arrival to the emergency department in [place]. Initial set of vital signs were 103/58 with a pulse of 97, Pulse ox was 89% with normal RR. Lab work done in [place] revealed: UA with protein, small bili, lg blood, 3-9 red blood cells, 1-2 white blood cells and occasional bacteria. Mag level was normal. CMP with NA 136, K 2.6, BUN 41, CR 2.85. Troponin was 0.15 which is outside the upper limits of normal. Flu and coronavirus swabs were negative. Lactic acid was 2.8. White blood cell count was 6.7. Hemoglobin was 10.6. Platelets were 185. Coags had a INR of 1.9. Chest x-ray shows no acute process. [place] ED gave him 2 L of lactated Ringer's and K replacement 10 meq IV. 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 He will be admitted for RIVERA, generalized weakness, elevated troponin, dehydration, elevated liver enzymes. Current vitals: BP 144/67, P 86. RR 24, PO2 93 RA Patient was admitted in hospital, he was given IV fluid, we halted his blood pressure medication, with IV fluid his renal function improved, will continue with PT OT while in hospital, patient was physically weak and that is why he was requiring usp home placement, with help of top case assembler we arranged usp home, while in hospital oncology evaluated this patient, patient will continue all his previous medication, patient seen and examined bedside today, please see my progress note from today for further detail. Resuscitation Status: 09/27/20 12:12 Resuscitation Status Routine Resuscitation Status: DNAR: NO Resuscitation Discussed with: discussed with pt Lab Results: 09/28/20 08:31 09/28/20 08:31 Abnormal Lab Results - Last 48 hrs 09/27/20 06:23: Chloride 112 H, Carbon Dioxide 17 L, BUN 34 H, Creatinine 2.10 H, Calcium 7.7 L, Total Bilirubin 2.0 H, AST 106 H, Alkaline Phosphatase 557 H, Albumin 2.7 L, Albumin/Globulin Ratio 0.8 L 09/27/20 06:23: WBC 4.1 L, RBC 3.70 L, Hgb 10.8 L, Hct 32.8 L, RDW 14.9 H, Lymphocytes # 1.1 L 09/27/20 06:23: Prostate Specific Ag 167.25 H 09/28/20 08:31: Chloride 115 H, Carbon Dioxide 17 L, Creatinine 1.64 H 09/28/20 08:31: RBC 3.66 L, Hgb 10.4 L, Hct 32.5 L, RDW 15.2 H, Monocytes % 10.8 H, Basophils % 1.1 H Microbiology - Entire Visit 09/26/20 00:05 Stool C. difficile GDH Antigen & Toxins - Final Vitals: Vital Signs (12 hours) Temp Pulse Resp BP Pulse Ox 09/28/20 08:00 98.0 F 101 H 40 H 134/62 95 Weight Admit Weight 277 lb 12.8 oz Weight 277 lb 12.8 oz Physical Exam: The patient was seen and examined on the day of discharge. General Appearance: NAD, awake alert Eye: PERRL, anicteric sclera ENT: normocephalic atraumatic, no oropharyngeal lesions Neck: supple, symmetric, no JVD, no thyromegaly Respiratory: no wheezes, no rales, no ronchi Cardiovascular: RRR, no murmur, no gallops, no rubs Gastrointestinal: soft, non-tender, non-distended, normal bowel sounds Extremities: no cyanosis, no clubbing, no edema Skin: normal turgor, no lesions Neurological: no focal deficits Musculoskeletal: normal tone, normal strength PSYCH: normal affect, normal behavior Problem (1) RIVERA (acute kidney injury) Code(s): N17.9 - ACUTE KIDNEY FAILURE, UNSPECIFIED Status: Acute (2) Obesity (BMI 30-39.9) Code(s): E66.9 - OBESITY, UNSPECIFIED Status: Chronic (3) Prostate cancer metastatic to multiple sites Code(s): C61 - MALIGNANT NEOPLASM OF PROSTATE Status: Chronic (4) Generalized muscle weakness Code(s): M62.81 - MUSCLE WEAKNESS (GENERALIZED) Status: Chronic (5) History of DVT (deep vein thrombosis) Code(s): Z86.718 - PERSONAL HISTORY OF OTHER VENOUS THROMBOSIS AND EMBOLISM Status: Chronic (6) Hypertension Code(s): I10 - ESSENTIAL (PRIMARY) HYPERTENSION Status: Chronic (7) Hypophosphatemia Code(s): E83.39 - OTHER DISORDERS OF PHOSPHORUS METABOLISM Status: Acute (8) Elevated liver enzymes Code(s): R74.8 - ABNORMAL LEVELS OF OTHER SERUM ENZYMES Status: Acute (9) Elevated troponin Code(s): R77.8 - OTHER SPECIFIED ABNORMALITIES OF PLASMA PROTEINS Status: Acute (10) Hypokalemia Code(s): E87.6 - HYPOKALEMIA Status: Acute Plan Home Medications: Medication Instructions Recorded Confirmed Type Atorvastatin Calcium [Lipitor] 80 mg PO DAILY 04/25/14 09/25/20 History Lisinopril/Hydrochlorothiazide 1 tablet PO DAILY 04/25/14 09/25/20 History [Lisinopril-Hctz 20-25 mg Tab] HYDROcodone Bit/APAP 5/325 [[place]] 1 - 2 tab PO Q6HR PRN 09/25/20 09/25/20 History Apixaban [Eliquis] 1 tab PO BID #0 09/28/20 09/25/20 Rx Allergies: No Known Allergies Allergy (Verified 09/25/20 17:29) PER E.R. PT. SUMMARY REPORT Activity:: Activity as Tolerated Nourishment:: Heart Healthy Diet Therapies:: Occupational Therapy, Physical Therapy Equipment/Supplies:: Not Applicable IV Therapy:: Not Applicable Referrals: Unknown,Unknown [Primary Care Provider] - Disposition: CUSTODIAL FACILITY Quality CORE MEASURES:: N/A
--- NOTE | 2020-09-29 03:15 | PQF ---
Dear :Rex Coleman Date 09/29/2020 Please exercise your independent, professional judgment in responding to the clarification form. Clinical indicators are provided on the bottom of this form for your review Can you please further clarify the diagnosis of the Patient? 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 Thank You. To be completed by CDI/Coding staff for physician review: Present Clinical Indicators - Signs / Symptoms / Labs Results and Location in Medical Record [ x ] Troponin I: 0.191H, 0.196H Laboratory [ x ] Elevated troponin H and P pg.1 [ x ] EKG showed sinus rhythm H and P pg.6 [ x ] Elevated troponin due to demand ischemia H and P pg.6 [ x ] Troponin was 0.15 which is outside the upper limits of normal DS pg.1 Present Risk Factors Results and Location in Medical Record [ x ] Hypertension H and P pg.1 [ x ] 79 years old H and P pg.1 [ x ] RIVERA H and P pg.1 [ x ] Obesity DS pg.3 [ x ] HLD ED Notes 09/25 [ x ] CKD stage 2 HP 09/25 Present Treatments Results and Location in Medical Record [ x ] IV Fluids MAR [ x ] Troponin Monitoring Laboratory [ x ] Eliquis 5mg Tab oral [facility] Phone #: ext [phone] Date This is a permanent part of the Medical Record [facility] [place]
== END 2020-09-28 16:30 | DRG 682 ==
LOC: ERS 04:48 → ERHOLD 05:50 → ONC 12:21
PROVIDERS: ADMIT Internal Medicine; ATTEND Internal Medicine
DX: N17.9 Acute kidney failure, unspecified (principal); I21.A1 Myocardial infarction type 2; E87.1 Hypo-osmolality and hyponatremia; C79.89 Secondary malignant neoplasm of other specified sites; Z20.822 Contact with and (suspected) exposure to COVID-19; Z66 Do not resuscitate; E86.0 Dehydration; C61 Malignant neoplasm of prostate; M19.90 Unspecified osteoarthritis, unspecified site; E78.5 Hyperlipidemia, unspecified; E66.9 Obesity, unspecified; E87.6 Hypokalemia; I12.9 Hypertensive chronic kidney disease with stage 1 through stage 4 chronic kidney disease, or unspecified chronic kidney disease; N18.2 Chronic kidney disease, stage 2 (mild); E83.39 Other disorders of phosphorus metabolism; D63.0 Anemia in neoplastic disease; Z96.651 Presence of right artificial knee joint; Z86.711 Personal history of pulmonary embolism; Z79.01 Long term (current) use of anticoagulants; Z79.899 Other long term (current) drug therapy; Z86.718 Personal history of other venous thrombosis and embolism; Z79.52 Long term (current) use of systemic steroids; Z68.38 Body mass index [BMI] 38.0-38.9, adult
CPT/HCPCS: 36415; 36416; 76770; 80048; 80053; 82553; 83605; 83735; 84100; 84153; 84484; 85025; 85610; 85730; 87324; 87449; 87635; 93005; 93306; J3480; J7050; U0003; U0005